=== PATIENT | female | born 1955 | race Two or more races ===

== ENCOUNTER 2020-03-01 20:25 | Emergency (ER) | payer SELFPAY ==
[~2020-03-01] VITALS: Ht 160 cm; Wt 63.6 kg
[~2020-03-01 20:25] MED LIST: AMOX1TAB61 PO; LISI10TA2 PO; Oxycodone Hcl/Acetaminophen PO
[2020-03-01] MEDS ORDERED: ONDANSETRON PF 4 MG/2 ML VIAL. IVP ONE (22:15)
[2020-03-01] MEDS ORDERED: ACETAMINOPHEN 500 MG TABLET PO ONE (22:15)
[2020-03-01] MEDS ORDERED: IV NORMAL SALINE 1000ML BAG 1,000 ML IV ONE (22:15)
--- NOTE | 2020-03-01 22:41 | PHYS DOC ---
Past Medical History Past Medical History: Hypertension, Kidney Stone (MAXWELL GUERRERO APRN) Past Surgical History: Other Additional Past Surgical Histo: right kidney sx/stent (MAXWELL GUERRERO APRN) Smoking Status: Never Smoker Alcohol Use: None Drug Use: None (MAXWELL GUERRERO APRN) General Adult EDM: Chief Complaint: NAUSEA/VOMITING/DIARRHA HPI: HPI: Patient is a 64 year old female with history of hypertension who presents today complaining of nausea and vomiting that began after having a tuna sandwich at work. She is employed at the [employer]. She is also complaining of a headache and chills. Denies this being the worst headache in her life. She states the headache is generalized and mild. She states the headache is intermittent. Denies any diarrhea. She states she has some stomach discomfort. Historian was patient using her daughter as official court interpreter for [place] (QUENTINRastaMAXWELL ANGELES) Review of Systems: Review of Systems: Constitutional: Reports chills. Denies fever Eyes: Denies change in visual acuity. [] HENT: Denies nasal congestion or sore throat. [] Respiratory: Denies cough or shortness of breath. [] Cardiovascular: Denies chest pain or edema. [] GI: Reports abdominal discomfort, nausea vomiting after having tuna, denies bloody stools or diarrhea. [] : Denies dysuria. [] Musculoskeletal: Denies back pain or joint pain. [] Integument: Denies rash. [] Neurologic: Reports headache, denies focal weakness or sensory changes. [] Endocrine: Denies polyuria or polydipsia. [] Lymphatic: Denies swollen glands. [] Psychiatric: Denies depression or anxiety. [] (MAXWELL GUERRERO APRN) Heart Score: Risk Factors: Risk Factors: DM, Current or recent (<one month) smoker, HTN, HLP, family history of CAD, obesity. Risk Scores: Score 0 - 3: 2.5% MACE over next 6 weeks - Discharge Home Score 4 - 6: 20.3% MACE over next 6 weeks - Admit for Clinical Observation Score 7 - 10: 72.7% MACE over next 6 weeks - Early Invasive Strategies (MAXWELL GUERRERO APRN) Current Medications: Current Medications Medications (Trade) Dose Ordered Sig/Rosas Start Time Stop Time Status Last Admin Dose Admin Acetaminophen (Tylenol) 1,000 mg 1X ONCE 03/01/20 22:15 03/01/20 22:18 DC Ondansetron HCl (Zofran) 4 mg 1X ONCE 03/01/20 22:15 03/01/20 22:18 DC Sodium Chloride 1,000 ml @ 1,000 mls/hr 1X ONCE 03/01/20 22:15 03/01/20 23:14 (MAXWELL GUERRERO APRN) Allergies: Allergies: Allergies Coded Allergies Type Severity Reaction Last Updated Verified No Known Drug Allergies 10/27/13 No (MAXWELL GUERRERO APRN) Physical Exam: PE: Constitutional: Well developed, well nourished, no acute distress, non-toxic appearance. [] HENT: Normocephalic, atraumatic, bilateral external ears normal, oropharynx moist, no oral exudates, nose normal. [] Eyes: PERRLA, EOMI, conjunctiva normal, no discharge. [] Neck: Normal range of motion, no tenderness, supple, no stridor. [] Cardiovascular:Heart rate regular rhythm, no murmur [] Lungs & Thorax: Bilateral breath sounds clear to auscultation [] Abdomen: Bowel sounds normal, soft, no tenderness, no masses, no pulsatile m asses. [] Skin: Warm, dry, no erythema, no rash. [] Back: No tenderness, no CVA tenderness. [] Extremities: No tenderness, no cyanosis, no clubbing, ROM intact, no edema. [] Neurologic: Alert and oriented X 3, normal motor function, normal sensory function, no focal deficits noted. Cranial nerves II through XII intact Psychologic: Affect normal, judgement normal, mood normal. [] (MAXWELL GUERRERO APRN) Current Patient Data: Vital Signs: Vital Signs Date Time Temp Pulse Resp B/P (MAP) Pulse Ox O2 Delivery O2 Flow Rate FiO2 03/01/20 22:20 97.6 58 20 148/72 (97) 96 Room Air 97.6 (MAXWELL GUERRERO APRN) EKG: EKG: [] (MAXWELL GUERRERO APRN) Radiology/Procedures: Radiology/Procedures: [] (MAXWELL GUERRERO APRN) Radiology/Procedures: IMAGING REPORT Signed PATIENT: DANISHA GRAVES ACCOUNT: [id number] : 1955 LOCATION: ER AGE: 64 SEX: F EXAM STATUS: REG ER ORD. PHYSICIAN: LAUREN GARCÍA DO REASON: headache PROCEDURE: CT HEAD WO CONTRAST EXAM: CT head without contrast INDICATION: Headache COMPARISON: None TECHNIQUE: Axial CT imaging through the head without intravenous contrast. One or more of the following individualized dose reduction techniques were utilized for this examination: 1. Automated exposure control 2. Adjustment of the mA and/or kV according to patient size 3. Use of iterative reconstruction technique. FINDINGS: There is subarachnoid hemorrhage in the suprasellar and perimesencephalic cisterns, right greater than left sylvian fissures, throughout the right frontal, parietal, and temporal sulci, and to a lesser extent in the left frontotemporal sulci. Sulci are diffusely small, with exception of the high left frontoparietal sulci. Ventricles are normal in size. No midline shift. Basal cisterns appear crowded. No acute infarct. The skull and scalp are normal. Visualized paranasal sinuses and mastoid air cells are clear. Globes and orbits are intact. IMPRESSION: Fairly diffuse subarachnoid hemorrhage involving the suprasellar and perimesencephalic cisterns, sylvian fissures, and right greater than left hemispheric sulci. There is resultant sulcal narrowing and mild crowding of basal cisterns. Critical results discussed by Dr. Odonnell with Dr. García at 1:50 AM on 03/02/2020 FOR INTERNAL CODING PURPOSES Critical result: Findings discussed with LAUREN GARCÍA at 03/02/2020 1:57 AM. RESULT CODE: (C) Electronically signed by: Bridget Odonnell MD (03/02/2020 2:04 AM) [id number] DICTATED and SIGNED BY: BRIDGET ODONNELL MD DATE: 03/02/20 0204 IMAGING REPORT Signed PATIENT: DANISHA GRAVES ACCOUNT: [id number] : 1955 LOCATION: ER AGE: 64 SEX: F EXAM STATUS: REG ER ORD. PHYSICIAN: MAXWELL GUERRERO APRN REASON: abd pain PROCEDURE: CT ABD PELV W/ IV CONTRST ONLY Exam: CT abdomen/pelvis with intravenous contrast Indication: Abdominal pain Comparison: None available Technique: Helical CT imaging performed of the abdomen and pelvis after the intravenous administration of 75 mL Omnipaque 300 intravenous contrast. Sagittal and coronal reformats were obtained. One or more of the following individualized dose reduction techniques were utilized for this examination: 1. Automated exposure control 2. Adjustment of the mA and/or kV according to patient size 3. Use of iterative reconstruction technique. Findings: Lower chest: Atelectasis in the lung bases heart is normal in size. Liver: Liver is normal in size and mildly decreased in attenuation. No focal lesion. Gallbladder/Biliary Tree: Cholecystectomy. Bile ducts are normal. Pancreas: Normal. Spleen: Normal. Adrenal Glands: Normal. Kidneys/Ureters/Bladder: Kidneys enhance symmetrically. There are probable left peripelvic cysts. There is a subcentimeter hypodensity in the right kidney, too small to characterize. Ureters are nondilated. Urinary bladder is normal. Reproductive Organs: Uterus is normal. No adnexal mass. Stomach, small bowel, and colon: Stomach is normal. No small bowel obstruction. Colon and appendix are normal.. Vasculature: Abdominal aorta and inferior vena cava are normal. Lymph Nodes: No lymphadenopathy. Peritoneum and retroperitoneum: No free fluid or free air. Bones: No acute osseous abnormality. Impression: No acute intra-abdominal/pelvic abnormality. Electronically signed by: Bridget Odonnell MD (03/02/2020 2:10 AM) [id number] DICTATED and SIGNED BY: BRIDGET ODONNELL MD DATE: 03/02/20209 (LAUREN GARCÍA DO) Course & Med Decision Making: Course & Med Decision Making Pertinent Labs and Imaging studies reviewed. (See chart for details) This is a 64-year-old female patient presenting to the ED today with nausea vomiting chills and a headache that began after having a tuna at work. 0019 Work up pending. Care transferred to Dr. García (MAXWELL GUERRERO APRN) Course & Med Decision Making Concern for sudden onset headache after eating a tuna sandwich with associated n ausea and vomiting (onset-7:30pm), Ct consistent with traumatic subarachnoid hemorrhage. Blood pressure within normal range, and normal coags, basic labs unremarkable, patient on no anticoagulation. Spoke with daughter at bedside who understands critical nature of patient. Patient does have a history of migraines but no prior intracranial hemorrhage. No neurosurgery coverage at [place]. Unable to order pneumonia pain. Systolic blood pressure under 140. Patient's pain decreased to a 2. Patient and daughter both requesting transfer to , refusing research transfer for endovascular evaluation. Delay in transfer due to numerous phone calls regarding transfer- both [facility] and are in high diversion. Pt accepted by Dr. Anthony at . Emergent transfer per ems. Pt GCS 15, CN2-12 intact, no photophobia or sensory/motor deficits. No furhter n/v. Is requesting and stable for transfer. Patient daughter both aware of critical nature of pt and agree with above plan. I have spoken with the patient and/or caregivers. I have explained the patient's condition, diagnosis and treatment plan based on the information available to me at this time. I have answered the patient's and/or caregivers questions and answered any concerns. The patient and/or caregivers have as good an understanding of the patient's diagnosis, condition and treatment plan as can be expected at this point. The patient has been stabilized within the capability of the emergency department. The patient will be transported for further care and management or will be moved to an observation or inpatient service. I have communicated with the staff or medical practitioner taking over this patient's care. Critical Care: Authorized and Performed by: Lauren García DO Total critical care time: approximately 120 minutes Due to a high probability of clinically significant, life threatening deterioration, the patient required my highest level of preparedness to intervene emergently and I personally spent this critical care time directly and personally managing the patient. This critical care time included obtaining a history; examining the patient; pulse oximetry; ventilator management if necessary; ordering and review of studies; arranging urgent treatment with development of a management plan; evaluation of patient's response to treatment; frequent reassessment; discussion with patient/family; and, discussions with other providers. This critical care time was performed to assess and manage the high probability of imminent, life-threatening deterioration that could result in multi-organ failure. It was exclusive of separately billable procedures and treating other patients and teaching time. Please see MDM section and the rest of the note for further information on patient assessment and treatment. (LAUREN GARCÍA DO) Dragon Disclaimer: Dragon Disclaimer: This electronic medical record was generated, in whole or in part, using a voice recognition dictation system. (MAXWELL GUERRERO APRN) Departure Departure Impression: Primary Impression: Subarachnoid hemorrhage Additional Impressions: Nausea & vomiting Qualified Codes: R11.2 - Nausea with vomiting, unspecified Abdominal pain Qualified Codes: R10.84 - Generalized abdominal pain Headache Disposition: 05 DC/TRF OTHER TYPE INSTITUTI (to , accepted by neurosurgery, Dr. Anthony) Condition: CRITICAL Referrals: NON,STAFF (PCP) MAXWELL GUERRERO APRN Mar 01, 2020 22:41 LAUREN GARCÍA DO Mar 02, 2020 02:50
[2020-03-01 22:57] LABS: BASO % 0 % (0-3); EOS % 0 % (0-3); HEMATOCRIT 36.2 % (36.0-47.0); HEMOGLOBIN 12.1 g/dL (12.0-15.5); LYMPH # 1.8 x10^3/uL (1.0-4.8); LYMPH % 15 % (24-48); MEAN CORPUSCULAR HEMOGLOBIN 29 pg (25-35); MEAN CORPUSCULAR HGB CONC 33 g/dL (31-37); MEAN CORPUSCULAR VOLUME 88 fL (79-100); MONO # 0.4 x10^3/uL (0.0-1.1); MONO % 3 % (0-9); NEUT # 9.8 x10^3/uL (1.8-7.7); NEUT % 82 % (31-73); PLATELET COUNT 303 x10^3/uL (140-400); RED CELL DISTRIBUTION WIDTH 13.7 % (11.5-14.5); WHITE BLOOD COUNT 11.9 x10^3/uL (4.0-11.0)
[2020-03-01 23:06] LABS: CALCIUM 8.9 mg/dL (8.5-10.1); CREATININE 0.8 mg/dL (0.6-1.0); GFR 72.7; POTASSIUM 3.8 mmol/L (3.5-5.1)
[2020-03-01 23:12] LABS: ALBUMIN 3.7 g/dL (3.4-5.0); MAGNESIUM 2.1 mg/dL (1.8-2.4); TOTAL BILIRUBIN 0.5 mg/dL (0.2-1.0); TOTAL PROTEIN 7.3 g/dL (6.4-8.2)
[2020-03-02] MEDS ORDERED: CONTRAST GIVEN. MC PRN ×2 (01:15→02:45)
[2020-03-02] MEDS ORDERED: IOHEXOL 300 MG/ML 100ML VIAL. IV ONE ×2 (01:15→02:45)
[2020-03-02 01:19] LABS: BACTERIA,URINE FEW /HPF (0-FEW); BILIRUBIN,URINE NEGATIVE (NEG); CLARITY,URINE CLEAR; COLOR,URINE YELLOW; NITRITE,URINE NEGATIVE (NEG); PROTEIN,URINE NEGATIVE (NEG-TRACE); UROBILINOGEN,URINE 0.2 mg/dL (0.2 mg/dL)
[2020-03-02] MEDS ORDERED: MORPHINE SULFATE 10 MG/ML VIAL. IV ONE (01:30)
[2020-03-02] MEDS ORDERED: DEXAMETHASONE SOD PHOS 20 MG/5 ML VIAL. IV ONE (01:30)
[2020-03-02] MEDS ORDERED: diphenhydrAMINE 50 MG/ML VIAL IVP ONE (01:30)
--- NOTE | 2020-03-02 02:07 | RAD ---
EXAM: CT head without contrast INDICATION: Headache COMPARISON: None TECHNIQUE: Axial CT imaging through the head without intravenous contrast. One or more of the following individualized dose reduction techniques were utilized for this examination: 1. Automated exposure control 2. Adjustment of the mA and/or kV according to patient size 3. Use of iterative reconstruction technique. FINDINGS: There is subarachnoid hemorrhage in the suprasellar and perimesencephalic cisterns, right greater than left sylvian fissures, throughout the right frontal, parietal, and temporal sulci, and to a lesser extent in the left frontotemporal sulci. Sulci are diffusely small, with exception of the high left frontoparietal sulci. Ventricles are normal in size. No midline shift. Basal cisterns appear crowded. No acute infarct. The skull and scalp are normal. Visualized paranasal sinuses and mastoid air cells are clear. Globes and orbits are intact. IMPRESSION: Fairly diffuse subarachnoid hemorrhage involving the suprasellar and perimesencephalic cisterns, sylvian fissures, and right greater than left hemispheric sulci. There is resultant sulcal narrowing and mild crowding of basal cisterns. Critical results discussed by Dr. Odonnell with Dr. Joiner at 1:50 AM on 03/02/2020 FOR INTERNAL CODING PURPOSES Critical result: Findings discussed with BRENDEN JOINER at 03/02/2020 1:57 AM. RESULT CODE: (C) Electronically signed by: Bridget Odonnell MD (03/02/2020 2:04 AM) [id number]
--- NOTE | 2020-03-02 02:13 | RAD ---
Exam: CT abdomen/pelvis with intravenous contrast Indication: Abdominal pain Comparison: None available Technique: Helical CT imaging performed of the abdomen and pelvis after the intravenous administration of 75 mL Omnipaque 300 intravenous contrast. Sagittal and coronal reformats were obtained. One or more of the following individualized dose reduction techniques were utilized for this examination: 1. Automated exposure control 2. Adjustment of the mA and/or kV according to patient size 3. Use of iterative reconstruction technique. Findings: Lower chest: Atelectasis in the lung bases heart is normal in size. Liver: Liver is normal in size and mildly decreased in attenuation. No focal lesion. Gallbladder/Biliary Tree: Cholecystectomy. Bile ducts are normal. Pancreas: Normal. Spleen: Normal. Adrenal Glands: Normal. Kidneys/Ureters/Bladder: Kidneys enhance symmetrically. There are probable left peripelvic cysts. There is a subcentimeter hypodensity in the right kidney, too small to characterize. Ureters are nondilated. Urinary bladder is normal. Reproductive Organs: Uterus is normal. No adnexal mass. Stomach, small bowel, and colon: Stomach is normal. No small bowel obstruction. Colon and appendix are normal.. Vasculature: Abdominal aorta and inferior vena cava are normal. Lymph Nodes: No lymphadenopathy. Peritoneum and retroperitoneum: No free fluid or free air. Bones: No acute osseous abnormality. Impression: No acute intra-abdominal/pelvic abnormality. Electronically signed by: Bridget Odonnell MD (03/02/2020 2:10 AM) [id number]
[2020-03-02 02:22] LABS: PROTHROMBIN TIME PATIENT 13.3 SEC (11.7-14.0)
[2020-03-02] MEDS ORDERED: HYDROmorphone 2 MG/ML VIAL IVP ONE (03:30)
--- NOTE | 2020-03-02 03:49 | RAD ---
STUDY: CT angiography of the head and neck INDICATION: Subarachnoid hemorrhage COMPARISON: CT head same day TECHNIQUE: Axial CT imaging of the head and neck utilizing angiography protocol and performed after the intravenous administration of 75 mL Omnipaque 300 intravenous contrast. Precontrast imaging through the head was performed as well. Multiplanar reformats and 3D MIP acquisitions were obtained. Encountered areas of stenosis are measured per NASCET criteria. One or more of the following individualized dose reduction techniques were utilized for this examination: 1. Automated exposure control 2. Adjustment of the mA and/or kV according to patient size 3. Use of iterative reconstruction technique. FINDINGS: CTA NECK: Arch/Proximal Great Vessels: This is portion of the arch is normal in caliber. Great vessel origins are patent. Carotid Bifurcation/Cervical ICA: Bilateral common carotid, internal carotid, and external carotid arteries are normal. 0 percent stenosis of the internal carotid arteries. Vertebral Arteries: Both vertebral arteries are normal.: CTA HEAD: Posterior Circulation: Basilar, superior cerebellar, posterior cerebral, and intradural vertebral arteries are normal. Anterior Circulation: There is a 7 x 4 x 4 mm aneurysm in the right middle cerebral artery and a proximal M2 branch just beyond the M1 division. The middle cerebral arteries are otherwise normal. The internal carotid arteries, anterior cerebral, and anterior and posterior communicating arteries are normal. Veins: Dural venous sinuses and jugular veins are patent. MISCELLANEOUS: The visualized portion of the neck and chest are unremarkable. Known subarachnoid hemorrhage is better seen on prior CT. 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 Results discussed by Dr. Odonnell with Dr. Joiner at 3:40 AM on 03/02/2020 Electronically signed by: Bridget Odonnell MD (03/02/2020 3:45 AM) [id number]
[2020-03-02 05:00] VITALS: BP 144/70
== END 2020-03-02 05:40 | disposition short-term general hospital (02) ==
LOC: ER 20:25
DX: I60.9 Nontraumatic subarachnoid hemorrhage, unspecified (principal); Z20.828 Contact with and (suspected) exposure to other viral communicable diseases; G82.50 Quadriplegia, unspecified; R11.2 Nausea with vomiting, unspecified; R10.84 Generalized abdominal pain; R51.9 Headache, unspecified
CPT/HCPCS: 36415; 70450; 70496; 70498; 74177; 80053; 81001; 83690; 83735; 85025; 85610; 85730; 87086; 96361; 96374; 96375; 99291; 99292; C9803; J1100; J1170; J1200; J2270; J2405; J7030; Q9967; U0003